=== PATIENT | female | born 1950 | race Caucasian/White ===

== ENCOUNTER 2019-11-13 17:37 | Inpatient (IN) | payer MEDICARE ==
[~2019-11-13] VITALS: Ht 162.6 cm; Wt 56.4 kg
[2019-11-13] MEDS ORDERED: VENTOLIN HFA [SP8 GM (17:42)
[2019-11-13] MEDS ORDERED: SYMBICORT 16010.2 GM (17:43)
[2019-11-13] MEDS ORDERED: NORVASC2.5 MG (17:47)
[2019-11-13 18:35] LABS: BASOPHILS 0.2 % (0-2); EOSINOPHILS 0.8 % (0-7); HEMATOCRIT 49.1 % (36.0-48.0); HEMOGLOBIN 16.1 g/dL (12-16); IMMATURE GRANULOCYTES 0.3 % (0-5); LYMPHOCYTES 10.8 % (15-50); MCH 32.9 pg (26.0-34.0); MCHC 32.8 g/dL (31.0-37.0); MCV 100.2 fL (80.0-100.0); MEAN PLATELET VOLUME 9.9 fL (7.4-10.4); MONOCYTES 3.9 % (2-11); PLATELET COUNT 198 10x3/uL (130-400)
[2019-11-13 18:44] LABS: APTT 25.7 SECONDS (22.8-39.4); INR 1.02 (0.85-1.17); PROTIME 13.3 SECONDS (11.6-15.0)
[2019-11-13 18:50] LABS: CALC OSMOLALITY 290 mosm/kg (275-300); CALCIUM 9.2 mg/dL (8.5-10.1); CARBON DIOXIDE 25.6 mmol/L (21.0-32.0); CHLORIDE - SERUM 105 mmol/L (98-107); CREATININE - SERUM 0.7 mg/dL (0.6-1.3); GLUCOSE 136 mg/dL (74-106); POTASSIUM - SERUM 4.2 mmol/L (3.5-5.1); SODIUM 142 mmol/L (136-145); UREA NITROGEN 28 mg/dL (7-18); eGFR NON AFRICAN AMERICAN 87 mL/min (90-120)
[2019-11-13 19:00] VITALS: BP 125/70
[2019-11-13 19:22] LABS: ALBUMIN 4.1 g/dL (3.4-5.0); ALKALINE PHOSPHATASE 72 U/L (30-120); ALT (SGPT) 26 U/L (10-68); BILIRUBIN - TOTAL 0.35 mg/dL (0.2-1.3); CKMB 1.7 U/L (0.0-3.6); CREATINE KINASE 83 UL (21-215); PRO BNP 143 pg/mL (0-125); PROTEIN - SERUM 7.3 g/dL (6.4-8.2)
[2019-11-13 20:00] VITALS: BP 101/83
[2019-11-13 21:00] VITALS: BP 108/53
[2019-11-13 22:00] VITALS: BP 106/61
--- NOTE | 2019-11-13 22:30 | NUR ---
RECEIVED FROM ER VIA STRETCHER AND ASSISTED TO BED. ALERT AND ORIENTED X4. RESP IRREG. SOB. O2 @ 4L/NC. NONPROD COUGH. TELEMETRY SHOWS ST WITH RATE OF 103 WITH PVCS. CONTINUOUS SAO2 MONITOR IN USE. V/S STABLE. 1/2 NS @ 50 ML/HR INFUSING IN LT AC. TALKATIVE WITH STAFF. RT CHEST TUBE NOTED TO WALL SUCTION WITH SMALL AMOUNT BLOODY DRAINGE IN TUBING WHICH IS SECURED TO RT LEG. SR ELEVATED X2. CL IN REACH. [place] ALARM ON FOR PT SAFETY. UNABLE TO RECALL HOME MEDS AND CORRECT DOSEAGE. WILL GET LIST FROM [facility] TOMORROW.
[2019-11-13 23:13] VITALS: BP 101/83
--- NOTE | 2019-11-13 23:46 | NUR ---
NOTIFIED NIECY MCCOY OF PT C/O PAIN AND CONCERN THAT MORPHINE 4MG MAY BE TO STRONG CONSIDERING PTS WEIGHT. NEW ORDER NOTED FOR MORPHINE 2MG IV.
[2019-11-14] VITALS (14 sets, daily range): BP systolic 100–123; BP diastolic 52–72; Ht 162.6 cm; Wt 56.4 kg
--- NOTE | 2019-11-14 04:01 | NUR ---
PT HAS SLEPT WELL. CHEST TUBE TO SUCTION HAS BUBBLING IN CHAMBER. NO DRAINAGE NOTED. NO DISTRESS. CONT SAO2 IN USE. V/S STABLE. CL IN REACH.
[2019-11-14 05:46] LABS: BASOPHILS 0 % (0-2); EOSINOPHILS 0 % (0-7); HEMATOCRIT 44.3 % (36.0-48.0); HEMOGLOBIN 14.3 g/dL (12-16); IMMATURE GRANULOCYTES 0.1 % (0-5); LYMPHOCYTES 10.4 % (15-50); MCH 32.2 pg (26.0-34.0); MCHC 32.3 g/dL (31.0-37.0); MCV 99.8 fL (80.0-100.0); MEAN PLATELET VOLUME 10.1 fL (7.4-10.4); MONOCYTES 12.3 % (2-11); NEUTROPHILS 77.2 % (40-80); PLATELET COUNT 191 10x3/uL (130-400); RBC 4.44 10x6/uL (4.00-5.40); RDW 13.1 % (11.5-14.5)
[2019-11-14 06:14] LABS: WBC 7.4 10x3/uL (4.8-10.8)
[2019-11-14 06:25] LABS: ALBUMIN 3.5 g/dL (3.4-5.0); ALKALINE PHOSPHATASE 57 U/L (30-120); ALT (SGPT) 21 U/L (10-68); BILIRUBIN - TOTAL 0.37 mg/dL (0.2-1.3); CALC OSMOLALITY 279 mosm/kg (275-300); CALCIUM 8.8 mg/dL (8.5-10.1); CARBON DIOXIDE 24.9 mmol/L (21.0-32.0); CHLORIDE - SERUM 106 mmol/L (98-107); CKMB 3.4 U/L (0.0-3.6); CREATINE KINASE 139 UL (21-215); CREATININE - SERUM 0.7 mg/dL (0.6-1.3); GLUCOSE 124 mg/dL (74-106); MAGNESIUM - SERUM 2.1 mg/dL (1.8-2.4); PHOSPHOROUS 4.9 mg/dL (2.5-4.9); POTASSIUM - SERUM 4.2 mmol/L (3.5-5.1); PROTEIN - SERUM 6.4 g/dL (6.4-8.2); SODIUM 137 mmol/L (136-145); UREA NITROGEN 26 mg/dL (7-18); eGFR NON AFRICAN AMERICAN 87 mL/min (90-120)
[2019-11-14 06:58] LABS: TROPONIN-I 0.585 ng/mL (0.000-0.060)
--- NOTE | 2019-11-14 07:15 | NUR ---
REC'D IN BED SITTING SUPINE IN BED AWAKE AND ALERT. RESP EVEN AND UNLABORED WITH NO DISTRESS NOTED. CAN EXPRESS NEEDS AND WANTS. NO C/O NOTED OR VOICED. CHEST TUBE INTACT. ASSESSMENT COMPLETED. C/L IN REACH AT BEDSIDE
--- NOTE | 2019-11-14 12:00 | NUR ---
ASSISTED WITH PANTY BEING CHANGED, INC OF URINE.CHEST TUBE KINKED GABY BRANDTLY CHEMICAL LAB TECHNICIAN AT BEDSIDE UN KINKED TUBE AND TAPED IN PLACE.
[2019-11-14 12:04] LABS: CKMB 3.9 U/L (0.0-3.6); CREATINE KINASE 183 UL (21-215); TROPONIN-I 0.496 ng/mL (0.000-0.060)
--- NOTE | 2019-11-14 15:45 | NUR ---
RECEIVED PATEINT FROM FLOOR. AWAKE AND ALERT. RIGHT SIDE CHEST TO SUCTION WATER SEAL. DARK RED DRAINAGE IN CONTAINER. MONITOR SINUS TACH WITH OCC PVC AND OCC PAC.
[2019-11-14 15:46] LABS: INR 1.05 (0.85-1.17); PROTIME 13.7 SECONDS (11.6-15.0)
[2019-11-14 15:47] LABS: APTT 26.1 SECONDS (22.8-39.4)
--- NOTE | 2019-11-14 17:00 | NUR ---
SUPER TRAY SERVED ATE COUPLE BITES.
--- NOTE | 2019-11-14 18:25 | NUR ---
UP TO BSC TOLERATED WELL. GAIT GOOD. IV LEFT AC STARTED WITH 1/2 NS AT 50 ML HOUR. PO MEDS TAKEN WITHOUT DIFFICULTY
--- NOTE | 2019-11-14 19:30 | NUR ---
PT A/OX4, LUNGS CLEAR, O2 @ 2L VIA N/C, RIGHT CHEST TUBE INTACT TO 20 CM SUCTION, LEFT PIV INTACT WITH IVF INFUSING, USES BSC WITH STANDBY ASSIST, NO C/O @ THIS TIME
--- NOTE | 2019-11-14 21:00 | NUR ---
PT REMAINS AWAKE, TAKES PO MEDS WITHOUT DIFFICULTY, VITALS STABLE
--- NOTE | 2019-11-14 23:00 | NUR ---
PT UP TO BSC TO VOID, RETURNED TO BED WITH STANDBY ASSIST, HR INCREASED TO 140-180, EKG DONE, NOTIFIED YARELI DUEÑAS APN PT IN UCAF 140'S, ORDERS RECIEVED, STARTED CARDIZEM GTT
[2019-11-15] VITALS (57 sets, daily range): BP systolic 92–142; BP diastolic 40–62
[2019-11-15 06:02] LABS: BASOPHILS 0.3 % (0-2); EOSINOPHILS 0.3 % (0-7); HEMATOCRIT 46.5 % (36.0-48.0); IMMATURE GRANULOCYTES 0.3 % (0-5); LYMPHOCYTES 14.6 % (15-50); MCH 31.7 pg (26.0-34.0); MCHC 32.3 g/dL (31.0-37.0); MCV 98.3 fL (80.0-100.0); MONOCYTES 10.5 % (2-11); PLATELET COUNT 176 10x3/uL (130-400); RBC 4.73 10x6/uL (4.00-5.40); RDW 12.8 % (11.5-14.5); WBC 6.9 10x3/uL (4.8-10.8)
[2019-11-15 06:19] LABS: CALC OSMOLALITY 275 mosm/kg (275-300); CALCIUM 8.4 mg/dL (8.5-10.1); CARBON DIOXIDE 25.1 mmol/L (21.0-32.0); CHLORIDE - SERUM 102 mmol/L (98-107); CREATININE - SERUM 0.6 mg/dL (0.6-1.3); GLUCOSE 104 mg/dL (74-106); POTASSIUM - SERUM 3.7 mmol/L (3.5-5.1); SODIUM 137 mmol/L (136-145); eGFR NON AFRICAN AMERICAN > 90 mL/min (90-120)
[2019-11-15 06:25] LABS: PHOSPHOROUS 3.4 mg/dL (2.5-4.9); UREA NITROGEN 17 mg/dL (7-18)
--- NOTE | 2019-11-15 07:12 | NUR ---
PATIENT IN OR, RECEIVED REPORT ON PATIENT.
--- NOTE | 2019-11-15 10:10 | NUR ---
PT ARRIVED TO UNIT AT 0957 FROM OR. CONNECTED TO TELEMETRY. CT X 2 TO RIGHT LATERAL SIDE. INCISION WITH DRESSING C/D/I TO RIGHT UPPER BACK. ON 7L VIA NON REBREATER MASK. L-RADIAL ALMA DELIA IN PLACE. RIJ IN PLACE. ESCALONA CATH IN PLACE WITH CLEAR YELLOW URINE. CT TO WATER SEAL PER DR. VICKERS. WILL CONTINUE TO MONITOR.
--- NOTE | 2019-11-15 10:30 | NUR ---
PLACED ON 10CM SUCTION PER DR. VICKERS. AIR LEAK NOTED OF BOTH CHEST TUBES. WILL CONTINUE TO MONITOR.
--- NOTE | 2019-11-15 11:18 | NUR ---
PLACED ON BIPAP AT 75% PER DR. SENA.
--- NOTE | 2019-11-15 11:25 | NUR ---
PLACED ON BIPAP AT 60% PER DR. SENA.
--- NOTE | 2019-11-15 16:36 | NUR ---
CALL RECEIVED FROM PT'S NIECE. DID NOT HAVE PASSCODE. PERMISSION ACQUIRED FROM PATIENT IN ORDER TO PROVIDE INFORMATION. BRIEF UPDATE GIVEN.
--- NOTE | 2019-11-15 17:59 | NUR ---
CALL RECEIVED FROM ANIKA VINI PT'S SON. PROVIDED PT'S FULL NAME AND DATE OF . PASSCODE GIVEN TO HIM AT THIS TIME. BRIEF UPDATE GIVEN. PT RESTING COMFORTABLY. WILL CONTINUE TO MONITOR.
--- NOTE | 2019-11-15 19:15 | NUR ---
PT LETHARGIC, FOLLOWS COMMANDS, BIPAP IN USE, WHEEZES NOTED, RIGHT CHEST TUBES X2 IN PLACE TO 10 CM SUCTION, DRSG INTACT TO RIGHT BACK, RIGHT CVL INTACT WITH IVF'S INFUSING, LEFT WRIST A-LINE INTACT AND ZEROED, ESCALONA PATENT TO BSD, TEDS AND SCD'S TO BILAT LOWER LEGS, NO DISTRESS NOTED
--- NOTE | 2019-11-15 21:24 | NUR ---
NOTIFIED DR VICKERS OF PT TEMP, ORDERS RECIEVED, GIVEN TYLENOL PO AND BLOOD CULTURES ORDERED, WILL CONT TO MONITOR
--- NOTE | 2019-11-15 23:30 | NUR ---
PT RESTING QUIETLY, OFFERED FLUIDS FOR C/O DRY MOUTH, REMAINS ON BIPAP, VITALS STABLE
[2019-11-16] VITALS (23 sets, daily range): BP systolic 93–118; BP diastolic 40–55
--- NOTE | 2019-11-16 00:30 | NUR ---
PT IN UCAF, RESTARTED CARDIZEM GTT, B/P STABLE, WILL CONT TO MONITOR
[2019-11-16 02:00] LABS: BILIRUBIN NEGATIVE (NEGATIVE); GLUCOSE NEGATIVE (NEGATIVE); KETONE SMALL mg/dL (NEGATIVE); NITRITE NEGATIVE (NEGATIVE); SPECIFIC GRAVITY 1.025 (1.005-1.020); UROBILINOGEN NORMAL (NORMAL)
[2019-11-16 02:05] LABS: BACTERIA FEW /hpf (NEGATIVE); EPITHELIAL CELLS 0-5 /hpf (0-5); RED CELLS - URINE 0-5 /hpf (0-5); WHITE CELLS - URINE 0-5 /hpf (NEGATIVE)
--- NOTE | 2019-11-16 02:15 | NUR ---
PT SLEEPING WITH NO DISTRESS NOTED, HR 80'S IN SINUS RHYTHYM, VITALS STABLE
--- NOTE | 2019-11-16 03:00 | NUR ---
CARDIZEM GTT PAUSED FOR 30 MINUTES AND RESTARTED AT 5 MG/HR DUE TO LOW B/P
[2019-11-16 05:29] LABS: BASOPHILS 0.1 % (0-2); EOSINOPHILS 0.1 % (0-7); HEMATOCRIT 37.9 % (36.0-48.0); HEMOGLOBIN 12.1 g/dL (12-16); IMMATURE GRANULOCYTES 0.4 % (0-5); LYMPHOCYTES 9.2 % (15-50); MCH 31.6 pg (26.0-34.0); MCHC 31.9 g/dL (31.0-37.0); MEAN PLATELET VOLUME 9.9 fL (7.4-10.4); MONOCYTES 13.6 % (2-11); NEUTROPHILS 76.6 % (40-80); RBC 3.83 10x6/uL (4.00-5.40); RDW 12.8 % (11.5-14.5); WBC 8.2 10x3/uL (4.8-10.8)
[2019-11-16 05:45] LABS: PLATELET COUNT 132 10x3/uL (130-400)
[2019-11-16 05:50] LABS: ALBUMIN 2.6 g/dL (3.4-5.0); ALKALINE PHOSPHATASE 43 U/L (30-120); ALT (SGPT) 19 U/L (10-68); BILIRUBIN - TOTAL 0.59 mg/dL (0.2-1.3); CALC OSMOLALITY 281 mosm/kg (275-300); CALCIUM 7.6 mg/dL (8.5-10.1); CARBON DIOXIDE 28.2 mmol/L (21.0-32.0); CHLORIDE - SERUM 106 mmol/L (98-107); CREATININE - SERUM 0.6 mg/dL (0.6-1.3); GLUCOSE 102 mg/dL (74-106); MAGNESIUM - SERUM 2.1 mg/dL (1.8-2.4); POTASSIUM - SERUM 3.6 mmol/L (3.5-5.1); PROTEIN - SERUM 5.4 g/dL (6.4-8.2); SODIUM 140 mmol/L (136-145); eGFR NON AFRICAN AMERICAN > 90 mL/min (90-120)
[2019-11-16 05:51] LABS: UREA NITROGEN 22 mg/dL (7-18)
--- NOTE | 2019-11-16 07:00 | NUR ---
RECEIVED BEDSIDE REPORT ON PATIENT AND ASSUMED CARE. PATIENT ALERT AND ORIENTED X 4, SITTING UP IN BED, CHEST TUBES X 2 TO RIGHT SIDE WITH AIR LEAK NOTED, TO 20 CM WALL SUCTION. POSTERIOR CT WITH 10 ML OF OUTPUT NOTED AND ANTERIOR CT WITH 16 ML OF OUTPUT NOTED. ESCALONA CATH IN PLACE WITH CLEAR YELLOW UOP NOTED, 110 ML. CM - A-FLUTTER RATE IN 110-120'S, RIGHT IJ CVL WITH CARDIZEM INFUSING AT 10 MG/HR (10 ML/HR), PLASMOLYTE AT 30 ML/HR AND ZINACEF AT 11.4 ML/HR. 20 TO LEFT WRIST NSL, LEFT ART LINE LEVELED AND ZEROED WITH DAMPENED WAVER FORM NOTED. BP WITH NIBP. SCD'S AND GERONIMO HOSE IN PLACE. O2 VIA NC AT 6 LPM, WITH SPO2 - 96%. RR - 24-30 TACHYPNEA NOTED, STATES HER BREATHING IS BETTER. HEAD TO TOE ASSESSMENT COMPLETED.
--- NOTE | 2019-11-16 08:31 | NUR ---
PATEINT GIVEN BREAKFAST TRAY, NO NEEDS AT THIS TIME. VSS.
--- NOTE | 2019-11-16 08:44 | NUR ---
PATIENT CONSUMED APPROXIMATELY 90% OF BREAKFAST (CLEAR LIQUIDS). MORNING MEDS GIVEN PER MAR. NO NEEDS AT THIS TIME.
--- NOTE | 2019-11-16 09:13 | NUR ---
PATIENT SITTING UP IN BED, NO NEEDS AT THIS TIME. ASSISTED IN REPOSITIONING. VSS.
--- NOTE | 2019-11-16 10:16 | NUR ---
Nutrition Follow-up: POD 1 VATS/bronch. Nursing reports pt ate ~90% of breakfast this AM. Diet: Clear Liquid -> Regular Wt: 121# (11/15 - bedscale); 97# (11/14 - bedscale); 80# (11/12 - stated) Last BM: 11/12 per chart Labs noted: Ca 7.6, Alb 2.6 Meds noted: Protonix -Rec ADAT as medically feasible. -Offer nutrition supplements. -Monitor wt. -RD Following.
--- NOTE | 2019-11-16 10:21 | NUR ---
PATIENT SITTING UP IN BED, VSS. CM - SR WITH PVC'S, RATE 98. SO2 - 97% ON 6 LPM VIA NC. NO NEEDS AT THIS TIME.
--- NOTE | 2019-11-16 11:05 | NUR ---
REASSESSMENT COMPLETED. VSS. NO NEEDS AT THIS TIME.
--- NOTE | 2019-11-16 11:05 | NUR ---
DR. SEBASTIAN AT ROOM UPDATED AND EXAMINES PATIENT.
--- NOTE | 2019-11-16 11:45 | NUR ---
PATIENT GIVEN LUNCH TRAY, VSS.
--- NOTE | 2019-11-16 12:33 | NUR ---
PATIENT ATE APPROXIMATELY 60% OF LUNCH TRAY.
--- NOTE | 2019-11-16 12:41 | OP ---
PATIENT NAME: DANIEL COOK MEDICAL RECORD: [id number] :46 LOCATION[id number] ADMISSION DATE:11/13/19 SURGEON: RAUL VICKERS MD DATE OF OPERATION: 11/15/2019 SURGEON: Raul Vickers MD PROCEDURE PERFORMED: Right thoracoscopy, lysis of intrapleural adhesions, bleb resection, mechanical pleurodesis, bronchoscopy. 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 ANESTHESIA: General endotracheal anesthesia, double lumen. ESTIMATED BLOOD LOSS: 10 cc. COMPLICATIONS: None. SPECIMENS: Two sets of apical blebs. CONDITION: Serious. DISPOSITION: ICU. OPERATIVE FINDINGS: 1. The patient did not tolerate single lung ventilation and this required intermittent 2-lung ventilation about every 5 minutes. 2. Significant adhesions to the upper lobe, especially anteriorly and medially with dense adhesions at the area of air leak at the apex, very near the subclavian vessels. The adhesions along the mediastinal pleura were left intact. 3. Likely a space problem as the lung did not fully re-inflate on 2-lung ventilation. 4. Large amount of endobronchial mucus suctioned on several occasions. No endobronchial lesions. PROCEDURE INDICATION: Spontaneous right pneumothorax and bulla. PROCEDURE IN DETAIL: The patient was brought to the operating suite and after single lung ventilation, the patient did not tolerate this even prior to movement to the left lateral decubitus position; therefore 2-lung ventilation was undertaken. The chest was prepped and draped. A separate stab wound was made to insert a chest tube. However, adhesions were encountered; therefore brief single lung ventilation was obtained. A second working port posteriorly was made and the scope was introduced. The adhesions were identified and under direct visualization EndoShears were used to take down the adhesions. Then, the lung was briefly reinflated and this continued at about 5-10 minute intervals when the patient's oxygen saturation would decrease intermittently on one-lung ventilation. Working at the apex, the adhesions were taken down bluntly and sharply and the area of leak was clearly discerned. Two staple lines were made with 2 separate specimens of apical blebs. No further air leak was noted. OPERATIVE REPORT [id number] DANIEL COOK Thorough irrigation was undertaken. The mechanical pleurodesis of the apex as well as using circumferential lines of electrocautery were performed. Chest tubes were placed apically and inferiorly and the lung was reinflated. The old chest tube hole was debrided and closed with nylons. The 2 working ports were closed with muscle layer, subcutaneous and subcuticular and the patient extubated and taken to CV ICU. TRANSINT:[id number] Voice Confirmation ID: [id number] DOCUMENT ID: [id number] RAUL VICKERS MD at 1241 CC: LEXY SENA MD and MAXINE LÓPEZ [id number] DICTATION DATE: 11/15/19 1128 CORN HUSKER: 11/15/19 1818 ADM IN [facility] [address] [place] [address]
--- NOTE | 2019-11-16 12:47 | NUR ---
DR. VICKERS AT ROOM UPDATED AND EXAMINES PATIENT.
--- NOTE | 2019-11-16 13:57 | NUR ---
PATIENT LINENS AND GOWN CHANGED. CHEST TUBE DRESSINGS CHANGED, BETADINE OINTMENT APPLIED AND 4X4, TEGADERM DRESSING. VSS. ASSISTED IN REPOSITIONING IN BED.
--- NOTE | 2019-11-16 14:58 | NUR ---
CVL DRESSING CHANGED. PATIENT C/O PAIN 5/10 TO UPPER RIGHT BACK INCISION SITE, GIVEN PRN MORPHINE 2 MG PER ORDER IVP WITH NS FLUSH. REASSESSMENT COMPLETED. ASSISTED IN REPOSITIONING IN BED.
--- NOTE | 2019-11-16 16:26 | MORECARE ---
CASE MANAGEMENT DISCHARGE SUMMARY PATIENT: DANIEL COOK UNIT: [id number] ADM DATE: 11/13/19 AGE: 69 : 48 SEX: F ROOM/BED: [facility] AUTHOR: DRAKEDOC PHYSICIAN: REFERRING PHYSICIAN: GERONIMO DEVLIN DO DATE OF SERVICE: 11/16/19 Discharge Plan Patient Name: DANIEL COOK Facility: [facility]:[place] : 1950 Planned Disposition: Home Anticipated Discharge Date: Discharge Date: Expected LOS: Initial Reviewer: [email or web address] Initial Review Date: 11/13/2019 Generated: 11/16/19 5:25 pm Comments DCP- Discharge Planning Updated by [email or web address]: Ginger Duenas on 11/16/19 3:[address] Patient Name: DANIEL COOK Admission Status: ER Accout number: [id number] Admission Date: 11-13-2019 : 1950 Admission Diagnosis:SHORTNESS OF BREATH Attending: GERONIMO DEVLIN Current LOS: 3 Anticipated DC Date: Planned Disposition: Home Primary Insurance: [employer] CHO[employer] PPO MCR ADVANT Discharge Planning Comments: CM met with patient to complete initial dc planning assessment. CM educated patient on the CM role and verbal consent given by patient to complete assessment. Patient lives at home with her where she is independent with her care. At discharge patient plans to return home and feels this is a safe discharge. CM discussed availability of home health, rehab services, and medical equipment. . Patient denies any DME currently at home . Patient denies any need for Home health or Rehab at this time. Patient denied known discharge needs at this time. CM will continue to follow and will assist as needed with dc plans/needs. District Court Administrator: Ginger Duenas DCPIA - Discharge Planning Initial Assessment Updated by [email or web address]: Ginger Duenas on 11/16/19 4:17 pm * Is the patient Alert and Oriented? Yes * How many steps to enter\exit or inside your home? 3-4 * PCP LÓPEZ * Pharmacy [facility] * Preadmission Environment Home with Family * ADLs Independent * Equipment None * List name and contact numbers for known caregivers / representatives who currently or will assist patient after discharge: ANIKA COOK - SON - [phone] KATYA PADRON - SISTER- [phone] * Verbal permission to speak to the caregivers and representatives has been obtained from the patient. Yes * Community resources currently utilized None * Additional services required to return to the preadmission environment? No * Can the patient safely return to the preadmission environment? Yes * Has this patient been hospitalized within the prior 30 days at any hospital? No Patient Name: DANIEL COOK Page [phone] at 1626 All edits/amendments must be made on the electronic document DICTATION DATE: 11/16/191624 RETAIL FIELD SUPERVISOR: CHANTELL 11/16/195 RPT#: [id number] DC DATE: STATUS: ADM IN [facility] [address] [place] [address] END OF REPORT
--- NOTE | 2019-11-16 16:46 | NUR ---
PATIENT ASSISTED IN REPOSITION IN BED. GIVEN DINNER TRAY. VSS. NO NEEDS AT THIS TIME.
--- NOTE | 2019-11-16 17:01 | NUR ---
PATIENT ATE APPROXIMATELY 20% OF DINNER TRAY. STATES DOES NOT HAVE MUCH OF AN APPETITE. VSS. NO NEEDS AT THIS TIME.
--- NOTE | 2019-11-16 18:18 | NUR ---
PATIENT RESTING QUIETLY EYES CLOSED. VSS.
--- NOTE | 2019-11-16 19:00 | NUR ---
REPORT RECEIVED AND CARE ASSUMED. RECEIVED PATIENT IN BED. AWAKE ALERT AND ORIENTED X 4. ASSESSMENT COMPLETED PER FLOW SHEET WITH NO ACUTE DISTRESS OBSERVED. MONITORS CONNECTED TO PATIENT WITH ALARMS SET. VSS. RT CHEST TUBES INTACT/SECURE/PATENT CONNECTED TO 10 CM WALL SUCTION DRAINING SMALL AMOUNT SEROSANGUINEOUS FLUID INTO COLLECTION CHAMBER/ AIR LEAK OBSERVED. CALL LIGHT IN REACH AND ABLE TO UTIILIZE TO MAKE NEEDS KNOWN.
--- NOTE | 2019-11-16 21:00 | NUR ---
AWAKE AND ALERT. VSS. CALL LIGHT IN REACH
--- NOTE | 2019-11-16 23:00 | NUR ---
RESTING WITH EYES CLOSED, EASILY ROUSED AND ALERT. REASSESSMENT COMPLETED PER FLOW SHEET WITH NO ACUTE DISTRESS OBSERVED. VSS. CALL LIGHT IN REACH. CHEST TUBES INTACT/SECURE/PATENT.
[2019-11-17] VITALS (24 sets, daily range): BP systolic 94–143; BP diastolic 44–85
--- NOTE | 2019-11-17 01:00 | NUR ---
AWAKE AND ALERT. VSS. CALL LIGHT IN REACH
--- NOTE | 2019-11-17 03:00 | NUR ---
RESTING WITH EYES CLOSED, EASILY ROUSED AND ALERT. REASSESSMENT COMPLETED PER FLOW SHEET WITH NO ACUTE DISTRESS OBSERVED. VSS. CALL LIGHT IN REACH
--- NOTE | 2019-11-17 05:00 | NUR ---
AWAKE AND ALERT. VSS. CALL LIGHT IN REACH
[2019-11-17 05:30] LABS: BASOPHILS 0 % (0-2); EOSINOPHILS 0.3 % (0-7); HEMATOCRIT 35.1 % (36.0-48.0); HEMOGLOBIN 11.5 g/dL (12-16); IMMATURE GRANULOCYTES 0.2 % (0-5); LYMPHOCYTES 10.5 % (15-50); MCH 32.1 pg (26.0-34.0); MCHC 32.8 g/dL (31.0-37.0); MONOCYTES 14.2 % (2-11); NEUTROPHILS 74.8 % (40-80); PLATELET COUNT 117 10x3/uL (130-400); RBC 3.58 10x6/uL (4.00-5.40); RDW 12.8 % (11.5-14.5); WBC 6.6 10x3/uL (4.8-10.8)
[2019-11-17 05:44] LABS: ALBUMIN 2.5 g/dL (3.4-5.0); ALKALINE PHOSPHATASE 39 U/L (30-120); ALT (SGPT) 21 U/L (10-68); BILIRUBIN - TOTAL 0.74 mg/dL (0.2-1.3); CALC OSMOLALITY 277 mosm/kg (275-300); CALCIUM 7.8 mg/dL (8.5-10.1); CHLORIDE - SERUM 104 mmol/L (98-107); CREATININE - SERUM 0.6 mg/dL (0.6-1.3); GLUCOSE 95 mg/dL (74-106); MAGNESIUM - SERUM 2.2 mg/dL (1.8-2.4); POTASSIUM - SERUM 3.3 mmol/L (3.5-5.1); PROTEIN - SERUM 5.4 g/dL (6.4-8.2); SODIUM 138 mmol/L (136-145); UREA NITROGEN 19 mg/dL (7-18); eGFR NON AFRICAN AMERICAN > 90 mL/min (90-120)
[2019-11-17 05:48] LABS: PHOSPHOROUS 2.2 mg/dL (2.5-4.9)
--- NOTE | 2019-11-17 18:46 | NUR ---
ASSISTED BACK TO BED -TOLERATED WELL
--- NOTE | 2019-11-17 19:20 | NUR ---
REPORT REC'D AND CARE ASSUMED, REC'D PT RESTING QUIETLY IN BED WATCHING TV, O2 @ 4LITERS VIA NC, AWAKE, ALERT, AND ORIENTED, RIGHT LATERAL CT'S X 2 TO 10CM H20 SUCTION, AIR LEAKS NOTED ON BOTH, DRSG CDI, RIGHT LATERAL DRSG CDI, RIGHT POSTERIOR BACK DRSG CDI, PT RATING PAIN "5" STATES I JUST FINISHED COUGHING AND THAT GOT IT STIRRED UP, ASSISTED PT TO POSITION FOR COMFORT, DENIES NEEDS, AIR OVERLAY MATTRESS IN USE, RIJ CVL SALINE LOCKED, TEDS/SCDS, PPP, SR UP X 2, CALL LIGHT IN REACH.
--- NOTE | 2019-11-17 21:45 | NUR ---
PT RESTING IN BED EYES CLOSED, RESP SHALLOW, O2 SAT 100%, BP STABLE, WILL MONITOR CLOSELY FOR CHANGES.
--- NOTE | 2019-11-17 23:15 | NUR ---
PT AWAKE, REQUESTING SOMETHING FOR PAIN, 2MG MORPHINE GIVEN SLOW IVP AT THIS TIME, PT REPOSITIONED ONTO LEFT SIDE SUPPORTED WITH PILLOWS, PT DENIES FURTHER NEEDS, REASSESSMENT COMPLETED, DRSGS TO RIGHT LATERAL SIDE CDI AND RIGHT POSTERIOR BACK, CT'S X 2 TO 10CM H2O SUCTION, AIR LEAK PRESENT, RIJ SALINE LOCKED, CM-CONTROLLED AFIB AT 95, BP STABLE.
[2019-11-18] VITALS (24 sets, daily range): BP systolic 10–134; BP diastolic 44–83
--- NOTE | 2019-11-18 00:20 | NUR ---
PT RESTING EYES CLOSED, VSS, WILL MONITOR FOR CHANGES.
--- NOTE | 2019-11-18 02:00 | NUR ---
NO CHANGES IN STATUS AT THIS TIME.
--- NOTE | 2019-11-18 04:00 | NUR ---
RADIOLOGY AT BS FOR AM CXR
--- NOTE | 2019-11-18 05:30 | NUR ---
PT ASSISTED UP TO BSC TO VOID, VOIDED 250CC CONCENTRATED URINE, CHG BATH AND COMPLETE LINEN CHANGE PROVIDED, PT ASSISTED BACK TO BED PER REQUEST, CM-UCAF 136-151, BP 101/54, HEART RATE SETTLED TO 103 ONCE BACK IN BED, PT REQUESTING COFFEE, ICE WATER AND COFFEE PROVIDED, PT DENIES FURTHER NEEDS, SR UP X 2 CALL LIGHT IN REACH.
[2019-11-18 06:19] LABS: BASOPHILS 0.2 % (0-2); EOSINOPHILS 1.2 % (0-7); HEMATOCRIT 37.9 % (36.0-48.0); HEMOGLOBIN 12.3 g/dL (12-16); IMMATURE GRANULOCYTES 0.3 % (0-5); MCH 31.9 pg (26.0-34.0); MCHC 32.5 g/dL (31.0-37.0); MCV 98.2 fL (80.0-100.0); MEAN PLATELET VOLUME 9.9 fL (7.4-10.4); MONOCYTES 12.9 % (2-11); NEUTROPHILS 76.4 % (40-80); RBC 3.86 10x6/uL (4.00-5.40); RDW 12.7 % (11.5-14.5); WBC 6.4 10x3/uL (4.8-10.8)
[2019-11-18 06:46] LABS: % SATURATION 19 % (15-55); IRON 32 ug/dl (35-150); TOTAL IRON BIND CAPACITY 161 ug/dl (260-445); UNSAT IRON BIND CAPACITY 129 ug/dl (150-375)
[2019-11-18 06:48] LABS: PLATELET COUNT 147 10x3/uL (130-400)
[2019-11-18 06:54] LABS: ALBUMIN 2.5 g/dL (3.4-5.0); ALKALINE PHOSPHATASE 41 U/L (30-120); ALT (SGPT) 21 U/L (10-68); BILIRUBIN - TOTAL 0.92 mg/dL (0.2-1.3); CALC OSMOLALITY 285 mosm/kg (275-300); CALCIUM 8.1 mg/dL (8.5-10.1); CARBON DIOXIDE 29.7 mmol/L (21.0-32.0); CHLORIDE - SERUM 103 mmol/L (98-107); FERRITIN 366 ng/mL (3-244); GLUCOSE 114 mg/dL (74-106); PHOSPHOROUS 2.5 mg/dL (2.5-4.9); PROTEIN - SERUM 5.7 g/dL (6.4-8.2); SODIUM 141 mmol/L (136-145); UREA NITROGEN 23 mg/dL (7-18)
[2019-11-18 07:10] LABS: CREATININE - SERUM 0.4 mg/dL (0.6-1.3)
[2019-11-18 07:11] LABS: POTASSIUM - SERUM 2.9 mmol/L (3.5-5.1); eGFR NON AFRICAN AMERICAN > 90 mL/min (90-120)
--- NOTE | 2019-11-18 17:47 | NUR ---
0730-RECIEVED AWAKE AND ALERT-IN BED OVERLAY OFF PER PT REQUEST-NOTED CONTINUES AIR LEAK IN A AND P- 10CM SUCTION 0830-ASSISTED TO BEDSIDE COMMODE WITH ASSIST OF PT 0845-PT STATED COCCYX HURTS-NOTED STAGE 1 1CM ROUND 1ST LAYER-MEPLEX PLACED -SPONGE CUSHION PLACED AND ENCOURAGED PT TO KEEP AIR OVERLAY ON-STATED MAKES ME FEEL LIKE I'VE SANK INTO IT AND CAN'T MOVE--PT UP IN CHAIR 1230-DR SENA AND JAZ AT BEDSIDE -VISUALIZED INCENTIVE SPIROMETRY-GOOD EFFORT BY PT -AND RESULTANT INCREASED AIR LEAK IN BOTH A AND P CHEST TUBE CONTAINERS-NO SUBCUTANEOUS EMPYSEMA NOTED AT THIS TIME-DR SENA ADVISED TO CONT WITH IS-NO FURTHER BIPAP AT THIS TIME 1530-OFFERED PT MATEUS BACK TO BED POST COMMODE USAGE -PT STATED I FEEL BETTER SITTING UP
--- NOTE | 2019-11-18 19:35 | NUR ---
REPORT REC'D AND CARE ASSUMED, REC'D PT SITTING UP IN CHAIR AT BS, O2 @ 4LITERS VIA NC, PT AWAKE, ALERT, AND ORIENTED X 4, MATERRELL, LAURA CVL DRSG CDI SALINE LOCKED, RIGHT LATERAL CHEST INCISION CDI, RIGHT LATERAL CHEST TUBES X 2 TO 10CM H2O SUCTION, SEROUS DRAINAGE PRESENT, AIR LEAK NOTED, RIGHT POSTERIOR BACK DRSG CDI, PT REQUESTING COFFEE AT THIS TIME, COFFEE PROVIDED, CALL LIGHT IN REACH.
--- NOTE | 2019-11-18 19:55 | NUR ---
PT COMPLAINS OF BEING COLD, SERUM K DRAWN FROM CVL AND SENT TO LAB, WARM BLANKET PROVIDED, PT DENIES FURTHER NEEDS.
--- NOTE | 2019-11-18 20:45 | NUR ---
SERUM K 3.5 40MEQ PO POTATSSIUM GIVEN, PT REMAINS UP IN CHAIR, VOICES NO OTHER NEEDS AT THIS TIME.
--- NOTE | 2019-11-18 22:10 | NUR ---
PT ASSISTED UP TO BSC TO VOID AND THEN TO BED, ASSISTED PT TO REPOSITION IN BED FOR COMFORT, WARM BLANKET PROVIDED, PT REQUESTING SOMETHING FOR PAIN, RATING RIGHT LATERAL SIDE PAIN A "6" ON 0-10 PAIN SCALE.
--- NOTE | 2019-11-18 22:20 | NUR ---
2 MG MORPHINE GIVEN SLOW IVP FOR DISCOMFORT, BP STABLE, CM-SR, PT DENIES ANY FURTHER NEEDS, CALL LIGHT IN REACH, BED IN LOWEST POSITION, SR UP X 2.
--- NOTE | 2019-11-18 23:30 | NUR ---
REASSESSMENT COMPLETED, PT STATES THAT PAIN HAS IMPROVED, VSS, WILL CONT TO MONITOR FOR CHANGES.
[2019-11-19] VITALS (24 sets, daily range): BP systolic 92–121; BP diastolic 42–69
--- NOTE | 2019-11-19 02:30 | NUR ---
NO CHANGES IN STATUS AT THIS TIME.
--- NOTE | 2019-11-19 04:00 | NUR ---
RADIOLOGY AT BS FOR AM CXR.
[2019-11-19 06:03] LABS: BASOPHILS 0.4 % (0-2); EOSINOPHILS 3.1 % (0-7); HEMATOCRIT 34.9 % (36.0-48.0); HEMOGLOBIN 11.2 g/dL (12-16); IMMATURE GRANULOCYTES 0.4 % (0-5); MCH 31.8 pg (26.0-34.0); MCHC 32.1 g/dL (31.0-37.0); MCV 99.1 fL (80.0-100.0); MEAN PLATELET VOLUME 9.8 fL (7.4-10.4); MONOCYTES 16.2 % (2-11); NEUTROPHILS 68.9 % (40-80); PLATELET COUNT 145 10x3/uL (130-400); RBC 3.52 10x6/uL (4.00-5.40); RDW 12.8 % (11.5-14.5); WBC 5.6 10x3/uL (4.8-10.8)
[2019-11-19 06:10] LABS: CALC OSMOLALITY 275 mosm/kg (275-300); CARBON DIOXIDE 27.4 mmol/L (21.0-32.0); CHLORIDE - SERUM 105 mmol/L (98-107); CREATININE - SERUM 0.5 mg/dL (0.6-1.3); GLUCOSE 105 mg/dL (74-106); MAGNESIUM - SERUM 1.9 mg/dL (1.8-2.4); PHOSPHOROUS 2.4 mg/dL (2.5-4.9); POTASSIUM - SERUM 4.3 mmol/L (3.5-5.1); SODIUM 137 mmol/L (136-145); UREA NITROGEN 18 mg/dL (7-18); eGFR NON AFRICAN AMERICAN > 90 mL/min (90-120)
--- NOTE | 2019-11-19 08:50 | NUR ---
PT RECIEVED ALERT AND ORIENTED VSS DENIES PAIN R IJ CVL DRESSING CDI R LAT CTX2 TO 10CM SUCTION AIR LEAK PRESENT, SEROUS DRAINAGE, INCISION SITES CDI, CALL LIGHT WITHINREACH 0730 ASSISTED TO VOID IN BSC AND THEN UP TO CHAIR 0800 BREAKFAST TRAY SERVED 0830 ATE 50% BREAKFAST
--- NOTE | 2019-11-19 10:41 | NUR ---
CHG BATH DONE, CT DRESSINGS CHANGED, DRESSING APPLIED TO COCCYX PER PT REQUEST FOR SORENESS
--- NOTE | 2019-11-19 10:48 | NUR ---
Nutrition Follow-up: Ate ~50% of breakfast this AM. States she is ordering Ensure PRN; usually drinks 1/day. Reports that she left her top dentures at home and bottom dentures do not fit. Diet: Regular PO intake: 43% avg x 10 meals Wt: 125.6# (11/18); 121# (11/15) Last BM: 11/11 per pt Labs noted: Ca 8.0, PO4 2.4 Meds noted: Protonix, electrolyte protocol -Add dental soft to current diet order. -Encourage PO intake and honor food preferences. -Pt may benefit from appetite stimulant. -Monitor wt. -RD following.
--- NOTE | 2019-11-19 11:58 | NUR ---
PT HAS MEPILEX SACRAL DRESSING IN PLACE FOR PROTECTION. SKIN IS INTACT UNDER DRESSING. WOUND CARE CONTINUES TO MONITOR.
--- NOTE | 2019-11-19 17:29 | NUR ---
1200 ATE 25% LUNCH 1700 ATE 50% DINNER USES IS HOURLY INDEPENDENTLY AND WITH ENCOURAGEMENT, CTX2 CONTINUE WITH AIR LEAK, PAIN MANAGED WITH PRN MEDICATION, DENIES ALL NEEDS, CALL LIGHT WITHIN REACH
--- NOTE | 2019-11-19 19:30 | NUR ---
REPORT REC'D AND CARE ASSUMED, REC'D PT SITTING UP IN CHAIR WATCHING TV, O2 @ 3LITERS VIA NC, AWAKE, ALERT, AND ORIENTED X 4, RIJ CVL DRSG CDI SALINE LOCKED, RIGHT LATERAL INCISION DRSG CDI, RIGHT POSTERIOR BACK DRSG CDI, RIGHT LATERAL CT'S X 2 TO 1O CM H2O SUCTION, AIR LEAKS NOTED, MD AWARE, DRSG CDI, MEPILEX DRSG TO BOTTOM DUE TO COMPLAINTS OF BEING SORE, BILAT TEDS AND SCDS, PPP, PT DENIES NEEDS, CALL LIGHT IN REACH.
--- NOTE | 2019-11-19 19:45 | NUR ---
PT ASSISTED UP TO BEDSIDE COMMODE TO VOID, VOIDED 100CC CLEAR YELLOW URINE, ASSSISTED BACK TO RECLINER, COFFEE PROVIDED ON REQUEST.
--- NOTE | 2019-11-19 21:03 | NUR ---
PT ASSISTED TO BSC TO VOID AND THEN TO BED PER REQUEST, PT REPOSITIONED SELF INDEPENDENTLY IN BED, PT COMPLAINS OF RIGHT SIDE INCISIONAL DISCOMFORT AFTER MOVING, 2MG MORPHINE GIVEN SLOW IVP, PT DENIES FURTHER NEEDS, SR UP X 2, CALL LIGHT IN REACH.
--- NOTE | 2019-11-19 22:55 | NUR ---
REASSESSMENT COMPLETED, MINIMAL OUTPUT FROM CT'S NOTED, PT DENIES PAIN, PT COMPLAINS OF BEING COLD, TEMP 98.7, WARM BLANKET PROVIDED, VSS, WILL CONT TO MONITOR CLOSELY FOR CHANGES.
[2019-11-20] VITALS (24 sets, daily range): BP systolic 97–122; BP diastolic 46–70
--- NOTE | 2019-11-20 02:00 | NUR ---
NO CHANGES IN STATUS, PT RESTING IN BED EYES CLOSED, RESP EVEN AND UNLABORED, VSS.
--- NOTE | 2019-11-20 03:30 | NUR ---
REASSESSMENT COMPLETED, PT ASSISTED UP TO BSC TO VOID, VOIDED 100CC CLEAR YELLOW URINE, BACK TO BED WITHOUT DIFFICULTY, TEDS, SCDS, AND SOCKS REMOVED FOR A BREAK DUE TO PT COMPLAINTS THAT SHE IS HOT.
--- NOTE | 2019-11-20 06:00 | NUR ---
AM MEDS GIVEN, COFFEE AND ICE WATER PROVIDED, PT REFUSED BATH AT THIS TIME, WISHES TO WAIT UNTIL LATER.
--- NOTE | 2019-11-20 07:00 | NUR ---
PT RECIEVED ALERT AN DORIENTED VSS DENIES PAIN AND ALL NEEDS, ASSISTED UP TO CHAIR
--- NOTE | 2019-11-20 09:19 | NUR ---
MORPHINE RENEWED PER DR JACOBS NURSE ROD
--- NOTE | 2019-11-20 11:45 | NUR ---
PT VISITOR IN ROOM. CURRENTLY SITTING IN CHAIR EATING LUNCH. NO SIGNS OF DISTRESS NOTED. WILL CONTINUE TO MONITOR
--- NOTE | 2019-11-20 15:22 | NUR ---
1300 CT TO WATER SEAL PER DR VICKERS
--- NOTE | 2019-11-20 16:30 | NUR ---
CXR RESULTS CALLED TO DR VICKERS, NO NEW ORDERS
--- NOTE | 2019-11-20 19:00 | NUR ---
REPORT RECEIVED, SHIFT ASSESSMENT COMPLETED PER FLOW SHEET, PT AAOx4 SITTING UP IN BEDSIDE CHAIR, REPOSITIONES SELF FOR COMFRT, CT x2 TO WATERSEAL WITH AIR LEAK NOTED PHYSICIAN AWARE, CT DRSG C/D/I, RIGHT UPPER BACK DRSG CHANGED C/D/I, GERONIMO CANAS AND SCD'S ON BLE, CALL LIGHT IN REACH, DENIES NEEDS AT THIS TIME, WILL CONTINUE TO MONITOR
--- NOTE | 2019-11-20 20:00 | NUR ---
CALL LIGHT PRESSED, PT ASSISTED TO BEDSIDE COMMODE PER REQUEST, ROXANNA VOID NOTED, PERICARE COMPLETED BY PT, COMPLETE BED LINEN CHANGED, MINIMAL ASSIST WITH AMBULATION TO BED, REPOSITIONED PT AND LINES FOR COMFORT, HOB ELEVATED, I/S COMPLETED [id number] ENCOURAGEMENT NEEDED, TCDB DONE, CALL LIGHT IN REACH, BED ALARM ON, PT DENIES OTHER NEEDS AT THIS TIME, WILL CONTINUE TO MONITOR
--- NOTE | 2019-11-20 23:25 | NUR ---
PT OUT OF BED TO BEDSIDE COMMODE WITH ASSIST, CLEAR YELLOW VOID NOTED, PERICARE COMPLETED BY PT, PT AMBULATED BACK IN BED AND REPOSITIONED FOR COMFORT, ALL DRSG'S C/D/I, CALL LIGHT IN REACH, BED ALARM ON, WILL CONTINUE TO MONITOR
--- NOTE | 2019-11-20 23:30 | NUR ---
PT REPOSITIONED ON BEDSIDE PER REQUEST, VSS, NO ACUTE S/S OF DISTRESS NOTED, PT SCROLLING THROUGH PHONE AKBAR CALM AND COMFORTABLE, CALL LIGHT IN REACH, BED ALARM ON, CLOSE MONITORING BY RN
[2019-11-21] VITALS (28 sets, daily range): BP systolic 92–124; BP diastolic 49–66
[2019-11-21 00:03] LABS: MAGNESIUM - SERUM 1.7 mg/dL (1.8-2.4); POTASSIUM - SERUM 3.7 mmol/L (3.5-5.1)
--- NOTE | 2019-11-21 00:30 | NUR ---
PT REPOSITIONED WITH MINIMAL ASSIST BACK IN BED FOR COMFORT, VSS, SMALL CUP ICE WATER GIVEN PER REQUEST, WILL CONTINUE TO MONITOR
--- NOTE | 2019-11-21 05:00 | NUR ---
PT ASSISTED TO BEDSIDE COMMODE, CLEAR YELLOW VOID NOTED, PERICARE COMPLETED BY PT WITH MINIMAL ASSIST, PT AMBULATED TO BEDSIDE CHAIR PER REQUEST, REPOSITIONED FOR COMFORT, COMPLETE LINEN AND GOWN CHANGED, PT REFUSES BATH AND "WOULD LIKE TO WAIT TILL LATER IN MORNING", ALL VSS, CALL LIGHT IN REACH, WILL CONTINUE TO MONITOR
[2019-11-21 05:53] LABS: BASOPHILS 0.5 % (0-2); HEMATOCRIT 34.6 % (36.0-48.0); IMMATURE GRANULOCYTES 0.7 % (0-5); LYMPHOCYTES 14.9 % (15-50); MCH 31.6 pg (26.0-34.0); MCHC 31.8 g/dL (31.0-37.0); MCV 99.4 fL (80.0-100.0); MEAN PLATELET VOLUME 9.9 fL (7.4-10.4); MONOCYTES 17.2 % (2-11); NEUTROPHILS 62.7 % (40-80); PLATELET COUNT 170 10x3/uL (130-400); RBC 3.48 10x6/uL (4.00-5.40); RDW 12.9 % (11.5-14.5); WBC 5.5 10x3/uL (4.8-10.8)
[2019-11-21 06:20] LABS: ALBUMIN 2.4 g/dL (3.4-5.0); ALKALINE PHOSPHATASE 35 U/L (30-120); ALT (SGPT) 19 U/L (10-68); BILIRUBIN - TOTAL 0.53 mg/dL (0.2-1.3); CALC OSMOLALITY 276 mosm/kg (275-300); CALCIUM 7.9 mg/dL (8.5-10.1); CARBON DIOXIDE 28.4 mmol/L (21.0-32.0); CHLORIDE - SERUM 105 mmol/L (98-107); CREATININE - SERUM 0.4 mg/dL (0.6-1.3); GLUCOSE 104 mg/dL (74-106); PHOSPHOROUS 3.4 mg/dL (2.5-4.9); POTASSIUM - SERUM 3.6 mmol/L (3.5-5.1); PROTEIN - SERUM 5.5 g/dL (6.4-8.2); SODIUM 138 mmol/L (136-145); UREA NITROGEN 16 mg/dL (7-18); eGFR NON AFRICAN AMERICAN > 90 mL/min (90-120)
--- NOTE | 2019-11-21 07:44 | NUR ---
AT BEDSIDE ASSESSING CHEST TUBES. BOTH CHEST TUBES HAD INTERMITTED AIR LEAKS. DR VICKERS CLAMPED THE POSTERIOR CHEST TUBE AND A VERBAL ORDER TO ASSESS SUBCUTANIOUS AIR IF NOT NOTED PA AND LAT FOR 1200 TODAY. PT IN THE CHAIR CHEST TUBE DRESSINGS CLEANED AND ADMINISTERED. WILL CONTINUE TO MONITOR.
--- NOTE | 2019-11-21 10:59 | NUR ---
Nutrition Follow-up: Pt reports good PO intake this AM. Drank 1 Boost yesterday. Diet: Regular, Dental Soft Wt: 126.7# (11/20); 125.6# (11/18); 121# (11/15) No BMs recorded Labs noted: Ca 7.9, Alb 2.4 Meds noted: Protonix, electrolyte protocol -Encourage PO intake and honor food preferences. -Offer nutrition supplements. -Monitor wt. -RD following.
--- NOTE | 2019-11-21 15:00 | NUR ---
DR. VICKERS HERE. POSTERIOR CHEST TUBE REMOVED PER DR. VICKERS. PATIENT GIVEN 2 MG MORPHINE PRIOR TO PROCEDURE. PATIENT TOLERATED WELL. STATES IT JUST BURNED. ANTERIOR CHEST TO WATER SEAL DRAINAGE. FLUCUATION WITH RESP NOTED. BILATERAL LUNGS EQUAL.
--- NOTE | 2019-11-21 15:30 | NUR ---
UP IN CHAIR AT BEDSIDE. GOOD GAIT. TOLERATED WELL
--- NOTE | 2019-11-21 18:30 | NUR ---
UP IN CHAIR AT BEDSIDE NO DISTRESS. AIR LEAK NOTED IN CHEST TUBE TO WATER SEAL DRAINAGE. SEROUS DRAINAGE NOTED IN TUBING. WET COUGH BUT UNPRODUCTIVE. DENIES PAIN. ATE ALMOST ALL OF HER SOUP AND CHOPPED TURKEY.
--- NOTE | 2019-11-21 19:35 | NUR ---
PT AMBULATED FROM CHAIR TO BATHROOM, CLEAR YELLOW VOID NOTED, PERICARE COMPLETED BY PT, AMBULATED WITH MINIMAL ASSIST BACK TO CHAIR, REPOSITIONED FOR COMFORT, PT DENIES PAIN OR NEEDS AT THIS TIME, VSS, SMALL CUP ICE WATER GIVEN, CALL LIGHT IN REACH, FALL PREVENTION TEACHING COMPLETED, WILL CONTINUE TO MONITOR
--- NOTE | 2019-11-21 20:45 | NUR ---
PT AMBULATED WITH MINIMAL ASSIST TO BEDSIDE COMMODE, CLEAR YELLOW VOID NOTED, PERICARE COMPLETED BY PT, ASSISTED IN BED AND REPOSITIONED FOR COMFORT, SCD'S ON BLE, VSS, PT DENIES PAIN OR NEEDS AT THIS TIME, WILL CONTINUE TO MONITOR
--- NOTE | 2019-11-21 23:00 | NUR ---
REASSESSSMENT COMPLETE, NO ACUTE CHANGES FROM PRIOR ASSESSMENT, PT RESTING WAKES WHEN RN ENTERS ROOM AAOx4, DENIES PAIN OR NEEDS AT THIS TIME, VSS, REPOSITIONED IN BED FOR COMFORT, HOB ELEVATED, ALL DRSG'S C/D/I, CT TO WATERSEAL WITH INTERMITTEN AIR LEAK NOTED, GERONIMO CANAS AND SCD'S ON BLE, CALL LIGHT IN REACH, BED ALARM ON, WILL CONTINUE TO MONITOR
[2019-11-22] VITALS (27 sets, daily range): BP systolic 97–123; BP diastolic 45–87
--- NOTE | 2019-11-22 01:45 | NUR ---
PT CALL LIGHT PRESSED, RN AT BEDSIDE TO ASSIST PT TO BEDSIDE COMMODE, CLEAR YELLOW VOID NOTED, PERICARE COMPLETED, PT AMBULATED TO BEDSIDE AND REQUESTED TO SIT UP, BED ALARM ON, CALL LIGHT IN REACH, VSS, PT C/O RIGHT SIDE DISCOMFORT, PAIN MED GIVEN PER MAR/ORDERS, WILL CONTINUE TO MONITOR
--- NOTE | 2019-11-22 05:00 | NUR ---
PT TRANSPORTED VIA WHEELCHAIR TO RADIOLOGY FOR IMAGING, PT TOLLERATED WELL WITH NO S/S OF DISTRESS, PT AAOx4 DENIES PAIN, RETURNED TO CVICU ROOM VIA WHEELCHAIR AND ASSISTED IN AMBULATION TO BED, REPOSITIONED FOR COMFORT, VSS, ALL DRSG'S C/D/I, CALL LIGHT IN REACH, BED ALARM ON, WILL CONTINUE TO MONITOR
[2019-11-22 05:58] LABS: BASOPHILS 0.3 % (0-2); EOSINOPHILS 3.1 % (0-7); HEMOGLOBIN 11.3 g/dL (12-16); IMMATURE GRANULOCYTES 0.5 % (0-5); LYMPHOCYTES 11.2 % (15-50); MCH 31.9 pg (26.0-34.0); MCHC 32.3 g/dL (31.0-37.0); MCV 98.9 fL (80.0-100.0); MEAN PLATELET VOLUME 9.8 fL (7.4-10.4); MONOCYTES 14.2 % (2-11); NEUTROPHILS 70.7 % (40-80); PLATELET COUNT 199 10x3/uL (130-400); RBC 3.54 10x6/uL (4.00-5.40); RDW 12.6 % (11.5-14.5); WBC 6.4 10x3/uL (4.8-10.8)
--- NOTE | 2019-11-22 06:15 | NUR ---
PT AMBULATED TO BEDSIDE CHAIR AND REPOSITIONED FOR COMFORT, SMALL CUP BLACK COFFEE GIVEN PER REQUEST, PT DENIES PAIN OR OTHER NEEDS AT THIS TIME, VSS, CALL LIGHT IN REACH, WILL CONTINUE TO MONITOR
[2019-11-22 06:29] LABS: ALBUMIN 2.5 g/dL (3.4-5.0); ALKALINE PHOSPHATASE 42 U/L (30-120); ALT (SGPT) 22 U/L (10-68); BILIRUBIN - TOTAL 0.48 mg/dL (0.2-1.3); CALC OSMOLALITY 272 mosm/kg (275-300); CARBON DIOXIDE 29.6 mmol/L (21.0-32.0); CHLORIDE - SERUM 102 mmol/L (98-107); CREATININE - SERUM 0.5 mg/dL (0.6-1.3); GLUCOSE 111 mg/dL (74-106); MAGNESIUM - SERUM 2.1 mg/dL (1.8-2.4); POTASSIUM - SERUM 3.9 mmol/L (3.5-5.1); PROTEIN - SERUM 5.8 g/dL (6.4-8.2); SODIUM 135 mmol/L (136-145); UREA NITROGEN 17 mg/dL (7-18); eGFR NON AFRICAN AMERICAN > 90 mL/min (90-120)
--- NOTE | 2019-11-22 08:38 | NUR ---
0700 PT RECIEVED UP IN CHAIR ALERT AND ORIENTED VSS DENIES PAIN R IJ CVL DRESSING CDI, CT DRESSING CDI, AIR LEAK PRESENT, ASSISTED TO BSC AND BACK TO CHAIR 0835 AM MEDS GIVEN, ATE 50% BREAKFAST
--- NOTE | 2019-11-22 10:50 | NUR ---
CT TO VALVE AND BAG DRAINAGE PER DR VICKERS, CVL DCD TIP INTACT, 20G PIV TO LAC
--- NOTE | 2019-11-22 18:16 | NUR ---
1200 ATE 25% LUNCH 1500 REFUSED BATH STATED SHE WOULD BATHE WHEN SHE GOT HOME TOMORROW 1700 ATE 50% DINNER 1800 ASSISTED BACK TO BED
--- NOTE | 2019-11-22 19:15 | NUR ---
PT A/OX4, LUNGS CLEAR, CHEST TUBE TO RIGHT LATERAL CHEST TO BEDSIDE DRAINAGE, O2 @ 2L VIA N/C, LEFT AC PIV INTACT AND SL, PT USES BSC WITHOUT ASSIST, NO C/O @ THIS TIME
--- NOTE | 2019-11-22 21:00 | NUR ---
TAKES PO MEDS WITHOUT DIFFICULTY, SITTING ON SIDE OF BED WITH NO C/O, VITALS STABLE
--- NOTE | 2019-11-22 23:30 | NUR ---
PT SLEEPING WITH NO DISTRESS, WILL CONT TO MONITOR
[2019-11-23] VITALS (13 sets, daily range): BP systolic 91–130; BP diastolic 49–67
--- NOTE | 2019-11-23 09:00 | NUR ---
RECEIVED REPORT AND ASSUMED CARE OF PATIENT. SITTING UP IN BEDSIDE CHAIR, VSS. NO NEEDS AT THIS TIME.
--- NOTE | 2019-11-23 09:37 | NUR ---
DR. CHEEMA AT ROOM UPDATED AND EXAMINES PATIENT. OK TO DISCHARGE TO HOME FROM PULMONARY STANDPOINT.
--- NOTE | 2019-11-23 09:52 | NUR ---
0715-RECIEVED AWAKE AND ALERT-SITTING UP IN CHAIR-R LATERAL CHEST TUBE TO STRAIGHT DRAINAGE 0800-DR VICKERS AT BEDSIDE -PA LAT CXR ORDERED-XRAY DEPARTMENT NOTIFIED 829-PERCOCET 5 PO GIVEN FOR 12/11 0850-PT TO XRAY VIA WHEELCHAIR AND O2
--- NOTE | 2019-11-23 09:56 | NUR ---
Nutrition Follow-up: Reports eating ~50% of breakfast this AM. Snacks at BS. Sometimes forgets to order Boost; will add 1x/day per pt request. Diet: Regular, Dental Soft PO intake: 10-75% Wt: 124.1# (11/21); 126.7# (11/20); 125.6# (11/18); 124.6# (11/16); 121# (11/15) Last BM: 11/20 per pt Labs noted (11/21): Na 135, Glu 111, Ca 8.0, Alb 2.5 Meds noted: MagOx, Protonix, electrolyte protocol -Encourage PO intake and honor food preferences within diet restrictions. -+Boost per pt request. -Pt may benefit from appetite stimulant. -Monitor wt. -RD following.
--- NOTE | 2019-11-23 10:22 | NUR ---
PATIENT SITTING UP IN CHAIR, NO NEEDS AT THIS TIME. VSS.
--- NOTE | 2019-11-23 12:28 | NUR ---
VOCALIZED NOT COMFORTABLE WITH HOME CARE ENTERING PREMISES-AL-
[2019-11-23] MEDS ORDERED: NICODERM CQ1 EAC3 TRANSDERM (12:33)
[2019-11-23] MEDS ORDERED: CARDIZEM CD180 MG PO (12:33)
[2019-11-23] MEDS ORDERED: PROTONIX40 MG PO (12:34)
--- NOTE | 2019-11-23 12:41 | MORECARE ---
CASE MANAGEMENT DISCHARGE SUMMARY PATIENT: DANIEL COOK UNIT: [id number] ADM DATE: 11/13/19 AGE: 69 : 48 SEX: F [facility] AUTHOR: DRAKEDOC PHYSICIAN: REFERRING PHYSICIAN: GERONIMO DEVLIN DO DATE OF SERVICE: 11/23/19 Discharge Plan Patient Name: DANIEL COOK Facility: [facility]:[place] : 1950 Planned Disposition: Home Anticipated Discharge Date: Discharge Date: Expected LOS: Initial Reviewer: [email or web address] Initial Review Date: 11/13/2019 Generated: 11/23/19 1:40 pm DCP- Discharge Planning Updated by [email or web address]: Ginger Duenas on 11/16/19 3:[address] Patient Name: DANIEL COOK Admission Status: ER Accout number: [id number] Admission Date: 11-13-2019 : 1950 Admission Diagnosis:SHORTNESS OF BREATH Attending: GERONIMO DEVLIN Current LOS: 3 Anticipated DC Date: Planned Disposition: Home Primary Insurance: [employer] CHOICE PPO M[employer]VANT Discharge Planning Comments: CM met with patient to complete initial dc planning assessment. CM educated patient on the CM role and verbal consent given by patient to complete assessment. Patient lives at home with her where she is independent with her care. At discharge patient plans to return home and feels this is a safe discharge. CM discussed availability of home health, rehab services, and medical equipment. . Patient denies any DME currently at home . Patient denies any need for Home health or Rehab at this time. Patient denied known discharge needs at this time. CM will continue to follow and will assist as needed with dc plans/needs. Oracle Manager: Ginger Duenas DCPIA - Discharge Planning Initial Assessment Updated by [email or web address]: Ginger Duenas on 11/16/19 4:17 pm * Is the patient Alert and Oriented? Yes * How many steps to enter\exit or inside your home? 3-4 * PCP LÓPEZ * Pharmacy [facility] * Preadmission Environment Home with Family * ADLs Independent * Equipment None * List name and contact numbers for known caregivers / representatives who currently or will assist patient after discharge: ANIKA COOK - SON - [phone] KATYA PADRON - SISTER- [phone] * Verbal permission to speak to the caregivers and representatives has been obtained from the patient. Yes * Community resources currently utilized None * Additional services required to return to the preadmission environment? No * Can the patient safely return to the preadmission environment? Yes * Has this patient been hospitalized within the prior 30 days at any hospital? No External Providers External Provider: [facility] Contact Date: Service Request Date: Service Type: Resolution: Reviewer: Comments: Last DP export: 11/16/19 3:26 p Patient Name: DANIEL COOK Page [id number] at 1241 All edits/amendments must be made on the electronic document DICTATION DATE: 11/23/191239 RN NEONATAL ICU: CHANTELL 11/23/19 1240 RPT#: [id number] DC DATE: STATUS: ADM IN [facility] [address] [place] [address] END OF REPORT
--- NOTE | 2019-11-23 13:06 | MORECARE ---
CASE MANAGEMENT DISCHARGE SUMMARY PATIENT: DANIEL COOK UNIT: [id number] ADM DATE: 11/13/19 AGE: 69 : 48 SEX: F [facility]: DRAKEDOC PHYSICIAN: REFERRING PHYSICIAN: GERONIMO DEVLIN DO DATE OF SERVICE: 11/23/19 Discharge Plan Patient Name: DANIEL COOK Facility: [facility]:[place] : 1950 Planned Disposition: Home Anticipated Discharge Date: Discharge Date: Expected LOS: Initial Reviewer: [email or web address] Initial Review Date: 11/13/2019 Generated: 11/23/19 2:05 pm DCP- Discharge Planning Updated by [email or web address]: Ginger Duenas on 11/16/19 3:[address] Patient Name: DANIEL COOK Admission Status: ER Accout number: [id number] Admission Date: 11-13-2019 : 1950 Admission Diagnosis:SHORTNESS OF BREATH Attending: GERONIMO DEVLIN Current LOS: 3 Anticipated DC Date: Planned Disposition: Home Primary Insurance: [employer] CHOICE PPO M[employer] ADVANT Discharge Planning Comments: CM met with patient to complete initial dc planning assessment. CM educated patient on the CM role and verbal consent given by patient to complete assessment. Patient lives at home with her where she is independent with her care. At discharge patient plans to return home and feels this is a safe discharge. CM discussed availability of home health, rehab services, and medical equipment. . Patient denies any DME currently at home . Patient denies any need for Home health or Rehab at this time. Patient denied known discharge needs at this time. CM will continue to follow and will assist as needed with dc plans/needs. Cook Fish Eggs: Ginger Duenas DCPIA - Discharge Planning Initial Assessment Updated by [email or web address]: Ginger Duenas on 11/16/19 4:17 pm * Is the patient Alert and Oriented? Yes * How many steps to enter\exit or inside your home? 3-4 * PCP LÓPEZ * Pharmacy [facility] * Preadmission Environment Home with Family * ADLs Independent * Equipment None * List name and contact numbers for known caregivers / representatives who currently or will assist patient after discharge: ANIKA COOK - SON - [phone] KATYA PADRON - SISTER- [phone] * Verbal permission to speak to the caregivers and representatives has been obtained from the patient. Yes * Community resources currently utilized None * Additional services required to return to the preadmission environment? No * Can the patient safely return to the preadmission environment? Yes * Has this patient been hospitalized within the prior 30 days at any hospital? No External Providers External Provider: [facility] Contact Date: Service Request Date: Service Type: Resolution: Reviewer: Comments: Last DP export: 11/23/19 11:41 a Patient Name: DANIEL COOK Page [phone] at 1306 All edits/amendments must be made on the electronic document DICTATION DATE: 11/23/19 1305 CLUB WAITER/WAITRESS: CHANTELL 11/23/19 1305 RPT#: [id number] DC DATE: STATUS: ADM IN [facility] [address] [place] [address] END OF REPORT
--- NOTE | 2019-11-23 14:51 | MORECARE ---
CASE MANAGEMENT DISCHARGE SUMMARY PATIENT: DANIEL COOK UNIT: [id number] ADM DATE: 11/13/19 AGE: 69 : 48 SEX: F [facility] AUTHOR: DRAKE,DOC PHYSICIAN: REFERRING PHYSICIAN: GERONIMO DEVLIN DO DATE OF SERVICE: 11/23/19 Discharge Plan Patient Name: DANIEL COOK Facility: [facility]:[place] : 1950 Planned Disposition: Home Anticipated Discharge Date: Discharge Date: Expected LOS: Initial Reviewer: [email or web address] Initial Review Date: 11/13/2019 Generated: 11/23/19 3:50 pm Comments DCP- Discharge Planning Updated by [email or web address]: Ginger Duenas on 11/23/19 1:[address] CM spoke to patient regarding Home Health and her being discharged with chest tube. MAGUI signed for no preference on or DME company. [facility] will bring portable tank to room and set up concentrator at her home and [facility] will admit patient on Tuesday. CM faxed all paperwork to both and [facility]. D/C IMM signed 11/23/19 @ 1427. DCP- Discharge Planning Updated by [id number]: Ginger Duenas on 11/16/19 3:[address] Patient Name: DANIEL COOK Admission Status: ER Accout number: [id number] Admission Date: 11-13-2019 : 1950 Admission Diagnosis:SHORTNESS OF BREATH Attending: GERONIMO DEVLIN Current LOS: 3 Anticipated DC Date: Planned Disposition: Home Primary Insurance: HU[employer]NA CHOICE PPO [facility] Discharge Planning Comments: CM met with patient to complete initial dc planning assessment. CM educated patient on the CM role and verbal consent given by patient to complete assessment. Patient lives at home with her where she is independent with her care. At discharge patient plans to return home and feels this is a safe discharge. CM discussed availability of home health, rehab services, and medical equipment. . Patient denies any DME currently at home . Patient denies any need for Home health or Rehab at this time. Patient denied known discharge needs at this time. CM will continue to follow and will assist as needed with dc plans/needs. Hiv Cts Specialist: Ginger Duenas DCPIA - Discharge Planning Initial Assessment Updated by [email or web address]: Ginger Duenas on 11/16/19 4:17 pm * Is the patient Alert and Oriented? Yes * How many steps to enter\exit or inside your home? 3-4 * PCP LÓPEZ * Pharmacy [facility] * Preadmission Environment Home with Family * ADLs Independent * Equipment None * List name and contact numbers for known caregivers / representatives who currently or will assist patient after discharge: ANIKA COOK - SON - [phone] KATYA PADRON - SISTER- [phone] * Verbal permission to speak to the caregivers and representatives has been obtained from the patient. Yes * Community resources currently utilized None * Additional services required to return to the preadmission environment? No * Can the patient safely return to the preadmission environment? Yes * Has this patient been hospitalized within the prior 30 days at any hospital? No Coverage Notice Reviewer: [email or web address] Ang Duenas Notice Issued Date-Time: 11/23/2019 14:36 Notice Type: Patient Choice Letter Notice Delivered To: Patient Relationship to Patient: Self Licensed Vocational Nurse Name: Delivery Method: HAND - Hand Delivered Ruma Days: Prior Verbal Notification: Recipient Understood Notice: Yes Recipient Signature: Yes Med Rec Note Co-signed by Attending: Coverage Notice Comment: NO PREFERENCE IN HOME HEALTH OR DME Reviewer: [id number] Ang Duenas Notice Issued Date-Time: 11/23/2019 14:36 Notice Type: IM Discharge Notice Notice Delivered To: Patient Relationship to Patient: Self Licensed Vocational Nurse Name: Delivery Method: HAND - Hand Delivered Ruma Days: Prior Verbal Notification: Recipient Understood Notice: Yes Recipient Signature: Yes Med Rec Note Co-signed by Attending: Coverage Notice Comment: Last DP export: 11/23/19 12:06 p Patient Name: DANILE COOK Page [phone] at 1451 All edits/amendments must be made on the electronic document DICTATION DATE: 11/23/19 145 AIRDROP SYSTEMS TECHNICIAN: CHANTELL 11/23/19 145 RPT#: [id number] DC DATE: STATUS: ADM IN [facility] [address] [place] [address] END OF REPORT
--- NOTE | 2019-11-23 16:24 | NUR ---
1330-PT STATING GOING HOME-RELUCTANT TO ACCEPT HOME CARE-STRESSED FOR CHEST TUBE CARE--NOTED-PT IGNORING CHEST TUBE COLLECTION BAG-LEAVING BEHIND WHEN MOVING AROUND ROOM-TIED BAG TO R WRIST TO PREVENT ACCIDENTAL DISLODGEMENT OF TUBING- 1430-[facility] AT BEDSIDE-REVIEWED O2 TANK AND HOW TO USE- 1500-PT DISCHARGED TO CARE OF NIECE WITH HOME O2 AND CHEST TUBE INTACT-STATED NAUSEATED SINCE ATE FISH- ZOFRAN 4MG PO GIVEN-REQUESTED PO PAIN MEDICINE 12/11-SAME GIVEN
--- NOTE | 2019-11-23 19:11 | MORECARE ---
CASE MANAGEMENT DISCHARGE SUMMARY PATIENT: DANIEL COOK UNIT: [id number] ADM DATE: 11/13/19 AGE: 69 : 48 SEX: F [facility] AUTHOR: DRAKE,DOC PHYSICIAN: REFERRING PHYSICIAN: GERONIMO DEVLIN DO DATE OF SERVICE: 11/23/19 Discharge Plan Patient Name: DANIEL COOK Facility: [facility]:[place] : 1950 Planned Disposition: Home Anticipated Discharge Date: Discharge Date: 11/23/2019 Expected LOS: Initial Reviewer: [email or web address] Initial Review Date: 11/13/2019 Generated: 11/23/19 8:11 pm Comments DCP- Discharge Planning Updated by [email or web address]: Ginger Duenas on 11/23/19 1:[address] CM spoke to patient regarding Home Health and her being discharged with chest tube. MAGUI signed for no preference on or DME company. [facility] will bring portable tank to room and set up concentrator at her home and [facility] will admit patient on Tuesday. CM faxed all paperwork to both and [facility]. D/C IMM signed 11/23/19 @ 1427. DCP- Discharge Planning Updated by [email or web address]: Ginger Duenas on 11/16/19 3:[address] Patient Name: DANIEL COOK Admission Status: ER Accout number: [id number] Admission Date: 11-13-2019 : 1950 Admission Diagnosis:SHORTNESS OF BREATH Attending: GERONIMO DEVLIN Current LOS: 3 Anticipated DC Date: Planned Disposition: Home Primary Insurance: [employer] CHOICE PPO M[employer] Discharge Planning Comments: CM met with patient to complete initial dc planning assessment. CM educated patient on the CM role and verbal consent given by patient to complete assessment. Patient lives at home with her where she is independent with her care. At discharge patient plans to return home and feels this is a safe discharge. CM discussed availability of home health, rehab services, and medical equipment. . Patient denies any DME currently at home . Patient denies any need for Home health or Rehab at this time. Patient denied known discharge needs at this time. CM will continue to follow and will assist as needed with dc plans/needs. Extrusion Machine Operator: Ginger Duenas DCPIA - Discharge Planning Initial Assessment Updated by [email or web address]: Ginger Duenas on 11/16/19 4:17 pm * Is the patient Alert and Oriented? Yes * How many steps to enter\exit or inside your home? 3-4 * PCP LÓPEZ * Pharmacy [facility] * Preadmission Environment Home with Family * ADLs Independent * Equipment None * List name and contact numbers for known caregivers / representatives who currently or will assist patient after discharge: ANIKA COOK - SON - [phone] KATYA PADRON - SISTER- [phone] * Verbal permission to speak to the caregivers and representatives has been obtained from the patient. Yes * Community resources currently utilized None * Additional services required to return to the preadmission environment? No * Can the patient safely return to the preadmission environment? Yes * Has this patient been hospitalized within the prior 30 days at any hospital? No Coverage Notice Reviewer: [email or web address] Ang Duenas Notice Issued Date-Time: 11/23/2019 14:36 Notice Type: Patient Choice Letter Notice Delivered To: Patient Relationship to Patient: Self Lisw Name: Delivery Method: HAND - Hand Delivered Ruma Days: Prior Verbal Notification: Recipient Understood Notice: Yes Recipient Signature: Yes Med Rec Note Co-signed by Attending: Coverage Notice Comment: NO PREFERENCE IN HOME HEALTH OR DME Reviewer: [email or web address] Ang Duenas Notice Issued Date-Time: 11/23/2019 14:36 Notice Type: IM Discharge Notice Notice Delivered To: Patient Relationship to Patient: Self Lisw Name: Delivery Method: HAND - Hand Delivered Ruma Days: Prior Verbal Notification: Recipient Understood Notice: Yes Recipient Signature: Yes Med Rec Note Co-signed by Attending: Coverage Notice Comment: Last DP export: 11/23/19 1:51 p Patient Name: DANIEL COOK Page [phone] at 191 All edits/amendments must be made on the electronic document DICTATION DATE: 11/23/191910 LAN/WAN ENGINEER: CHANTELL 11/23/191910 RPT#: [id number] DC DATE:11/23/19 STATUS: DIS IN [facility] [address] [facility] [place] [address] END OF REPORT
== END 2019-11-23 16:30 | disposition home health service (06) | DRG 163 ==
LOC: D.ER 17:37 → D.CVICU 20:09 → D.MS 20:09 → D.CVICU 11-14 15:38
PROVIDERS: Family Medicine; Internal Medicine Nephrology; Internal Medicine Pulmonary Disease; Thoracic Surgery (Cardiothoracic Vascular Surgery); ADMIT Family Medicine; ATTEND Family Medicine
PROC: 0W9930Z Drainage of Right Pleural Cavity with Drainage Device, Percutaneous Approach (ICD-10-PCS; 2019-11-13)
PROC: 0BJ08ZZ Inspection of Tracheobronchial Tree, Via Natural or Artificial Opening Endoscopic (ICD-10-PCS; 2019-11-15)
PROC: 0B5N4ZZ Destruction of Right Pleura, Percutaneous Endoscopic Approach (ICD-10-PCS; principal; 2019-11-15 07:30)
PROC: 0BQK4ZZ Repair Right Lung, Percutaneous Endoscopic Approach (ICD-10-PCS; 2019-11-15 07:30)
DX: J93.11 Primary spontaneous pneumothorax (principal); J96.01 Acute respiratory failure with hypoxia; J96.02 Acute respiratory failure with hypercapnia; F17.213 Nicotine dependence, cigarettes, with withdrawal; J98.11 Atelectasis; I10 Essential (primary) hypertension; F41.9 Anxiety disorder, unspecified; E04.2 Nontoxic multinodular goiter; J43.9 Emphysema, unspecified; D50.9 Iron deficiency anemia, unspecified; M81.0 Age-related osteoporosis without current pathological fracture; I48.0 Paroxysmal atrial fibrillation

== ENCOUNTER 2019-11-24 16:13 | Emergency (ER) | payer MEDICARE ==
[~2019-11-24] VITALS: Ht 162.6 cm; Wt 36.4 kg
[~2019-11-24 16:13] MED LIST: CARDIZEM CD180 MG PO; NICODERM CQ1 EAC3 TRANSDERM; NORVASC2.5 MG; PROTONIX40 MG PO; SYMBICORT 16010.2 GM; VENTOLIN HFA [SP8 GM
[2019-11-24 16:15] VITALS: Ht 162.6 cm; Wt 36.4 kg
[2019-11-24 18:11] LABS: BASOPHILS 0.2 % (0-2); EOSINOPHILS 1.5 % (0-7); HEMATOCRIT 33.3 % (36.0-48.0); HEMOGLOBIN 10.8 g/dL (12-16); IMMATURE GRANULOCYTES 0.5 % (0-5); LYMPHOCYTES 9.9 % (15-50); MCHC 32.4 g/dL (31.0-37.0); MCV 98.5 fL (80.0-100.0); MEAN PLATELET VOLUME 9.4 fL (7.4-10.4); MONOCYTES 11.6 % (2-11); NEUTROPHILS 76.3 % (40-80); PLATELET COUNT 266 10x3/uL (130-400); RBC 3.38 10x6/uL (4.00-5.40); RDW 12.6 % (11.5-14.5); WBC 8.5 10x3/uL (4.8-10.8)
[2019-11-24 18:18] LABS: CALC OSMOLALITY 274 mosm/kg (275-300); CHLORIDE - SERUM 99 mmol/L (98-107); CREATININE - SERUM 0.7 mg/dL (0.6-1.3); GLUCOSE 95 mg/dL (74-106); POTASSIUM - SERUM 3.5 mmol/L (3.5-5.1); SODIUM 137 mmol/L (136-145); UREA NITROGEN 16 mg/dL (7-18); eGFR NON AFRICAN AMERICAN 87 mL/min (90-120)
[2019-11-24 18:29] LABS: ALBUMIN 2.4 g/dL (3.4-5.0); ALKALINE PHOSPHATASE 49 U/L (30-120); ALT (SGPT) 21 U/L (10-68); BILIRUBIN - TOTAL 0.47 mg/dL (0.2-1.3); PROTEIN - SERUM 5.8 g/dL (6.4-8.2)
[2019-11-24 19:05] VITALS: BP 145/74
== END 2019-11-24 19:06 | disposition home or self-care (01) ==
LOC: D.ER 16:13
PROVIDERS: Family Medicine
DX: T85.9XXA Unspecified complication of internal prosthetic device, implant and graft, initial encounter (principal); E07.9 Disorder of thyroid, unspecified; J44.9 Chronic obstructive pulmonary disease, unspecified; I10 Essential (primary) hypertension

== ENCOUNTER → 2019-11-28 10:12 | Outpatient (CLI) | payer MEDICARE ==
[2019-11-24 16:15] VITALS: BMI 13.7
== END | disposition home or self-care (01) ==
LOC: D.RAD 10:12
PROVIDERS: ATTEND Thoracic Surgery (Cardiothoracic Vascular Surgery)
DX: Z98.890 Other specified postprocedural states (principal)

== ENCOUNTER → 2019-12-04 12:52 | Outpatient (CLI) | payer MEDICARE ==
[2019-11-24 16:15] VITALS: BMI 13.7
== END | disposition home or self-care (01) ==
LOC: D.RAD 12:52 → D.CT 12:52
PROVIDERS: ATTEND Thoracic Surgery (Cardiothoracic Vascular Surgery)
DX: R06.00 Dyspnea, unspecified (principal)

== ENCOUNTER → 2019-12-12 11:06 | Outpatient (CLI) | payer MEDICARE ==
[2019-11-24 16:15] VITALS: BMI 13.7
== END | disposition home or self-care (01) ==
LOC: D.RAD 11:06
PROVIDERS: ATTEND Thoracic Surgery (Cardiothoracic Vascular Surgery)
DX: R06.02 Shortness of breath (principal)

== ENCOUNTER → 2020-01-21 10:21 | Outpatient (CLI) | payer MEDICARE ==
[2019-11-24 16:15] VITALS: BMI 13.7
== END | disposition home or self-care (01) ==
LOC: D.LAB 10:21
PROVIDERS: ATTEND Nurse Practitioner
DX: Z11.59 Encounter for screening for other viral diseases (principal); C34.11 Malignant neoplasm of upper lobe, right bronchus or lung